=== PATIENT | female | born 1945 | race Caucasian/White ===

== ENCOUNTER 2019-10-21 08:42 | Outpatient (CLI) | payer MEDICARE, OTHER ==
[~2019-10-21 08:42] MED LIST: ALPR0.5T7 PO; ASPI-496 PO; BENA20TA54 PO; DIPH25CA61 PO; HYDR-3240 PO; IBUP200T49 PO; METH4TAB2 PO; OMEP-110 PO; OXYC5CAP2 PO; PREG50CA PO; PROP20TA PO; [UNRECOGNIZED DRUG - OTHER] SC
[2019-10-21] MEDS ORDERED: DULO30CA2 PO (09:56)
[2019-10-21] MEDS ORDERED: EVOL140S INJ (09:56)
[2019-10-21 10:20] LABS: ALBUMIN 3.4 g/dL (3.4-5.0); ANION GAP 8 mmol/L (5-15); CALCIUM 8.7 mg/dL (8.5-10.1); CHLORIDE 106 mmol/L (98-107)
[2019-10-21 10:22] LABS: ALANINE AMINOTRANSFERASE 18 U/L (12-78); ALKALINE PHOSPHATASE 131 U/L (45-117); BILIRUBIN,TOTAL 0.6 mg/dL (0.2-1.0); CREATININE 0.87 mg/dL (0.55-1.02); TOTAL PROTEIN 6.8 g/dL (6.4-8.2)
== END 2019-10-21 23:59 | disposition home or self-care (01) ==
LOC: STAR 08:42
PROVIDERS: ATTEND Internal Medicine Gastroenterology
DX: Z01.818 Encounter for other preprocedural examination (principal); M47.26 Other spondylosis with radiculopathy, lumbar region; M48.061 Spinal stenosis, lumbar region without neurogenic claudication; I51.7 Cardiomegaly; I25.2 Old myocardial infarction
CPT/HCPCS: 36415; 80053; 93005

== ENCOUNTER → 2020-07-17 | Outpatient (CLI) | payer MEDICARE, OTHER ==
[~2020-07-17] MED LIST changes: +DULO30CA2 PO; +EVOL140S2 INJ
== END | disposition home or self-care (01) ==
LOC: RAD 10:11
PROVIDERS: ATTEND Internal Medicine Gastroenterology
DX: K21.9 Gastro-esophageal reflux disease without esophagitis (principal); R94.5 Abnormal results of liver function studies; R11.0 Nausea; D37.1 Neoplasm of uncertain behavior of stomach
CPT/HCPCS: 78264; A9541